=== PATIENT | male | born 1990 | race Caucasian/White ===

== ENCOUNTER 2019-06-02 18:46 | Emergency (ER) | payer OTHER ==
--- NOTE | 2019-06-02 21:24 | XR ---
EXAMINATION TYPE: XR chest 2V DATE OF EXAM: 06/02/2019 COMPARISON: NONE HISTORY: Cough and congestion TECHNIQUE: 2 views FINDINGS: Heart is normal. Lungs are clear. Diaphragm is normal. Bony thorax is intact. IMPRESSION: Normal chest. Normal heart.
[2019-06-02 21:40] LABS: Basophils # (A) 0.2 k/uL (0-0.2); Basophils % (A) 2 %; Eosinophils # (A) 0.4 k/uL (0-0.7); Eosinophils % (A) 3 %; HCT 45.7 % (39.0-53.0); HGB 15.2 gm/dL (13.0-17.5); Lymphocytes # (A) 4.4 k/uL (1.0-4.8); Lymphocytes % (A) 31 %; MCH 30.7 pg (25.0-35.0); MCHC 33.3 g/dL (31.0-37.0); MCV 92.1 fL (80.0-100.0); Mean Platelet Volume 7.9; Monocytes # (A) 0.9 k/uL (0-1.0); Monocytes % (A) 6 %; Neutrophils # (A) 8.2 k/uL (1.3-7.7); Neutrophils % (A) 57 %; Platelet Count 259 k/uL (150-450); RBC 4.96 m/uL (4.30-5.90); RDW 12.5 % (11.5-15.5); WBC 14.2 k/uL (3.8-10.6)
[2019-06-02 21:57] LABS: ALT 17 U/L (4-49); AST 30 U/L (17-59); African American GFR (CKD) >90 (>60 ml/min/1.73 sqM); Albumin 4.1 g/dL (3.5-5.0); Alkaline Phosphatase 72 U/L (38-126); Anion Gap 8 mmol/L; Blood Urea Nitrogen 20 mg/dL (9-20); Calcium 8.9 mg/dL (8.4-10.2); Carbon Dioxide 23 mmol/L (22-30); Chloride 107 mmol/L (98-107); Glucose 99 mg/dL (74-99); Magnesium 1.8 mg/dL (1.6-2.3); Non-African American GFR(CKD) 89 (>60 ml/min/1.73 sqM); Potassium 4.4 mmol/L (3.5-5.1); Sodium 138 mmol/L (137-145); Total Bilirubin 0.4 mg/dL (0.2-1.3); Total Protein 6.8 g/dL (6.3-8.2)
--- NOTE | 2019-06-02 22:56 | ED ---
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 He states that the pain has been present for approximately one month. He describes it as a pleuritic pain. Denies pain with palpitation of the area he has not attempted to take any medications at home for her symptoms. Does admit to making him feel mildly short of breath. No associated nausea or vomiting. Denies a history of DVT or PE. States that he had an EF of 20% 4 years ago and never followed up. He currently does not take any medications. He denies any tearing or chest pain. No fevers or chills. Currently does not use any IV drugs. No recent sick contacts. No travel. Denies any fevers or chills. No history of endocarditis. No nausea or vomiting. There are no alleviating, precipitating or modifying factors - Related Data Allergies Allergy/AdvReac Type Severity Reaction Status Date / Time No Known Allergies Allergy Verified 06/02/19 19:45 Review of Systems ROS Statement: Those systems with pertinent positive or pertinent negative responses have been documented in the HPI. ROS Other: All systems not noted in ROS Statement are negative. Past Medical History Past Medical History: No Reported History History of Any Multi-Drug Resistant Organisms: None Reported Past Surgical History: No Surgical Hx Reported Past Psychological History: No Psychological Hx Reported Smoking Status: Current every day smoker Past Alcohol Use History: Occasional Past Drug Use History: Marijuana General Exam Limitations: no limitations General appearance: alert, in no apparent distress Head exam: Present: atraumatic, normocephalic, normal inspection Eye exam: Present: normal appearance, PERRL, EOMI. Absent: scleral icterus, conjunctival injection, periorbital swelling ENT exam: Present: normal exam, mucous membranes moist Neck exam: Present: normal inspection. Absent: tenderness, meningismus, lympha denopathy Respiratory exam: Present: normal lung sounds bilaterally, chest wall tenderness (on the right. no palpable deformity). Absent: respiratory distress, wheezes, rales, rhonchi, stridor Cardiovascular Exam: Present: regular rate, normal rhythm, normal heart sounds. Absent: systolic murmur, diastolic murmur, rubs, gallop, clicks GI/Abdominal exam: Present: soft, normal bowel sounds. Absent: distended, tenderness, guarding, rebound, rigid Extremities exam: Present: normal inspection, full ROM, normal capillary refill. Absent: tenderness, pedal edema, joint swelling, calf tenderness Back exam: Present: normal inspection Neurological exam: Present: alert, oriented X3, CN II-XII intact Psychiatric exam: Present: normal affect, normal mood Skin exam: Present: warm, dry, intact, normal color. Absent: rash Course Vital Signs 06/02/19 06/02/19 19:42 23:16 Temperature 97.9 F 98 F Pulse Rate 57 L 69 Respiratory 20 18 Rate Blood Pressure 118/65 123/85 O2 Sat by Pulse 98 98 Oximetry EKG Findings - EKG Comments: EKG Findings:: EKG demonstrates normal sinus rhythm with a ventricular rate of 60. ME interval 168. QRS 94. QTC of 408. There is a Q wave within inverted T-wave in lead 3. J-point elevation in V2 through V6. No acute ST segment elevations Medical Decision Making - Medical Decision Making Upon arrival the patient was placed into room 23. Because of his complaint I did place the patient in room 7. He is up to continuous pulse ox and cardiac monitoring. 12-lead EKG was performed which demonstrates no acute findings. I did recommend laboratory studies which was started with blood cell count 14.2. D-dimer is negative. CMP is unremarkable. Patient has normal kidney function at this time. Troponin is less than 0.012. BNP is 48. The patient was sent for a chest x-ray which demonstrates no acute findings. I discussed results with the patient. He is satisfied with the workup. He states that he had the pain for approximately one month and was persuaded to come into the emergency room by his for evaluation. I did recommend that the patient follow up with [facility] in order to have a repeat echo to ensure his EF has improved. I instructed him that he should take Naprosyn twice daily for his discomfort. Return to the emergency room for any new or worsening symptoms. Follow up with his primary care doctor in 2-4 days. The patient understood this he was discharged home in stable condition - Lab Data Result diagrams: 06/02/19 21:21 06/02/19 21:21 Lab Results 06/02/19 06/02/19 06/02/19 Range/Units 21:21 21:21 21:21 WBC 14.2 H (3.8-10.6) k/uL RBC 4.96 (4.30-5.90) m/uL Hgb 15.2 (13.0-17.5) gm/dL Hct 45.7 (39.0-53.0) % MCV 92.1 (80.0-100.0) fL MCH 30.7 (25.0-35.0) pg MCHC 33.3 (31.0-37.0) g/dL RDW 12.5 (11.5-15.5) % Plt Count 259 (150-450) k/uL Neutrophils % 57 % Lymphocytes % 31 % Monocytes % 6 % Eosinophils % 3 % Basophils % 2 % Neutrophils # 8.2 H (1.3-7.7) k/uL Lymphocytes # 4.4 (1.0-4.8) k/uL Monocytes # 0.9 (0-1.0) k/uL Eosinophils # 0.4 (0-0.7) k/uL Basophils # 0.2 (0-0.2) k/uL D-Dimer 0.18 (<0.60) mg/L FEU Sodium 138 (137-145) mmol/L Potassium 4.4 (3.5-5.1) mmol/L Chloride 107 (98-107) mmol/L Carbon Dioxide 23 (22-30) mmol/L Anion Gap 8 mmol/L BUN 20 (9-20) mg/dL Creatinine 1.12 (0.66-1.25) mg/dL Est GFR (CKD-EPI)AfAm >90 (>60 ml/min/1.73 sqM) Est GFR (CKD-EPI)NonAf 89 (>60 ml/min/1.73 sqM) Glucose 99 (74-99) mg/dL Calcium 8.9 (8.4-10.2) mg/dL Magnesium 1.8 (1.6-2.3) mg/dL Total Bilirubin 0.4 (0.2-1.3) mg/dL AST 30 (17-59) U/L ALT 17 (4-49) U/L Alkaline Phosphatase 72 (38-126) U/L Troponin I (0.000-0.034) ng/mL NT-Pro-B Natriuret Pep pg/mL Total Protein 6.8 (6.3-8.2) g/dL Albumin 4.1 (3.5-5.0) g/dL Lipase 98 (23-300) U/L 06/02/19 06/02/19 Range/Units 21:21 21:21 WBC (3.8-10.6) k/uL RBC (4.30-5.90) m/uL Hgb (13.0-17.5) gm/dL Hct (39.0-53.0) % MCV (80.0-100.0) fL MCH (25.0-35.0) pg MCHC (31.0-37.0) g/dL RDW (11.5-15.5) % Plt Count (150-450) k/uL Neutrophils % % Lymphocytes % % Monocytes % % Eosinophils % % Basophils % % Neutrophils # (1.3-7.7) k/uL Lymphocytes # (1.0-4.8) k/uL Monocytes # (0-1.0) k/uL Eosinophils # (0-0.7) k/uL Basophils # (0-0.2) k/uL D-Dimer (<0.60) mg/L FEU Sodium (137-145) mmol/L Potassium (3.5-5.1) mmol/L Chloride (98-107) mmol/L Carbon Dioxide (22-30) mmol/L Anion Gap mmol/L BUN (9-20) mg/dL Creatinine (0.66-1.25) mg/dL Est GFR (CKD-EPI)AfAm (>60 ml/min/1.73 sqM) Est GFR (CKD-EPI)NonAf (>60 ml/min/1.73 sqM) Glucose (74-99) mg/dL Calcium (8.4-10.2) mg/dL Magnesium (1.6-2.3) mg/dL Total Bilirubin (0.2-1.3) mg/dL AST (17-59) U/L ALT (4-49) U/L Alkaline Phosphatase (38-126) U/L Troponin I <0.012 (0.000-0.034) ng/mL NT-Pro-B Natriuret Pep 48 pg/mL Total Protein (6.3-8.2) g/dL Albumin (3.5-5.0) g/dL Lipase (23-300) U/L Disposition Clinical Impression: Chest wall pain Disposition: HOME SELF-CARE Condition: Stable Instructions (If sedation given, give patient instructions): Chest Wall Pain (ED) Additional Instructions: Please follow-up with your primary care doctor in 2-4 days. I also recommended you see the [facility] for reevaluation of your heart function. Return to the emergency room for any new worsening symptoms Is patient prescribed a controlled substance at d/c from ED?: No Referrals: None,Stated [Primary Care Provider] - 1-2 days [facility] [Provider Group] - 1-2 days Time of Disposition: 23:08
[2019-06-02 23:16] VITALS: BP 123/85; PULSE 69; RESP 18; TEMP 98
== END 2019-06-02 23:21 | disposition home or self-care (01) ==
LOC: EC 18:46
DX: R07.89 Other chest pain (principal); I50.9 Heart failure, unspecified; N19 Unspecified kidney failure; T40.1X1A Poisoning by heroin, accidental (unintentional), initial encounter; F17.200 Nicotine dependence, unspecified, uncomplicated
CPT/HCPCS: 36415; 71046; 80053; 83690; 83735; 83880; 84484; 85025; 85379; 93005; 99284

== ENCOUNTER 2021-06-11 14:00 | Emergency (ER) | payer OTHER ==
[2021-06-11 14:14] VITALS: RESP 18; TEMP 98.2
[2021-06-11] MEDS ORDERED: HYDROmorphone 1 MG/ML 1 ML SYRINGE IM STA (15:02)
[2021-06-11] MEDS ORDERED: TRANEXAMIC ACID 1,000 MG/10 ML VIAL IRRIGATION STA (15:28)
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
[2021-06-11 17:20] VITALS: BP 133/64; PULSE 68
== END 2021-06-11 17:20 | disposition home or self-care (01) ==
LOC: EC 14:00
DX: L76.01 Intraoperative hemorrhage and hematoma of skin and subcutaneous tissue complicating a dermatologic procedure (principal); F17.200 Nicotine dependence, unspecified, uncomplicated; W19.XXXA Unspecified fall, initial encounter
CPT/HCPCS: 99283; 96372; J1170

== ENCOUNTER 2021-10-13 13:15 | Emergency (ER) | payer OTHER ==
[2021-10-13] MEDS ORDERED: DIPH,PERTUS(ACELL)TETVAC-LF 0.5 ML VIAL IM ONE (13:22)
[2021-10-13] MEDS ORDERED: SODIUM CHLORIDE 0.9% 1,000 ML IV STA (13:22)
[2021-10-13 13:23] VITALS: PULSE 80; RESP 16
[2021-10-13] MEDS ORDERED: MORPHINE SULFATE 4 MG/ML SYRINGE IVP STA ×3 (13:23→16:09)
[2021-10-13 13:26] LABS: Glucose,Whole Blood 113 mg/dL (75-99)
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
--- NOTE | 2021-10-13 13:47 | XR ---
EXAMINATION TYPE: XR chest 1V portable DATE OF EXAM: 10/13/2021 COMPARISON: 06/02/2019 HISTORY: Trauma TECHNIQUE: Single frontal view of the chest is obtained. FINDINGS: There is a small focal infiltrate in the left upper lobe which was seen previously but is slightly more prominent. The heart size normal vasculature is not congested. There is no pleural effusion thorax. The osseous structures are intact IMPRESSION: 1. No evidence of trauma 2. Small left upper lobe infiltrate which has increased in the interval since the prior study.
[2021-10-13 13:48] LABS: ALT 47 U/L (4-49); AST 50 U/L (17-59); African American GFR (CKD) >90 (>60 ml/min/1.73 sqM); Albumin 4.7 g/dL (3.5-5.0); Alcohol <10 mg/dL; Alkaline Phosphatase 126 U/L (38-126); Anion Gap 11 mmol/L; Blood Urea Nitrogen 16 mg/dL (9-20); Calcium 9.5 mg/dL (8.4-10.2); Carbon Dioxide 22 mmol/L (22-30); Chloride 109 mmol/L (98-107); Glucose 115 mg/dL (74-99); Non-African American GFR(CKD) >90 (>60 ml/min/1.73 sqM); Potassium 3.9 mmol/L (3.5-5.1); Sodium 142 mmol/L (137-145); Total Bilirubin 0.8 mg/dL (0.2-1.3); Total Protein 7.7 g/dL (6.3-8.2)
--- NOTE | 2021-10-13 13:49 | XR ---
Pelvis. HISTORY: Pain findings trauma COMPARISON: None. TECHNIQUE: Single AP view the pelvis is obtained. FINDINGS: There has been open reduction internal fixation of multiple pelvic fractures and fracture of the prox imal right femur. There is no evidence of acute trauma. IMPRESSION: Marked open reduction internal fixation of multiple pelvic fractures and right hip fracture. There is no evidence of acute trauma.
[2021-10-13 13:52] LABS: Basophils # (A) 0.1 k/uL (0-0.2); Basophils % (A) 0 %; Eosinophils # (A) 0.1 k/uL (0-0.7); Eosinophils % (A) 1 %; HCT 47.6 % (39.0-53.0); HGB 16.3 gm/dL (13.0-17.5); Lymphocytes # (A) 2.4 k/uL (1.0-4.8); Lymphocytes % (A) 16 %; MCH 30.2 pg (25.0-35.0); MCHC 34.2 g/dL (31.0-37.0); MCV 88.3 fL (80.0-100.0); Mean Platelet Volume 7.8; Monocytes # (A) 0.9 k/uL (0-1.0); Monocytes % (A) 6 %; Neutrophils % (A) 75 %; Platelet Count 332 k/uL (150-450); RDW 13.9 % (11.5-15.5); WBC 14.8 k/uL (3.8-10.6)
[2021-10-13 13:58] LABS: Prothrombin Time 11.1 sec (9.0-12.0)
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
[2021-10-13 17:02] VITALS: BP 136/95; TEMP 98.5
== END 2021-10-13 17:02 | disposition home or self-care (01) ==
LOC: EC 13:15
DX: S62.390A Other fracture of second metacarpal bone, right hand, initial encounter for closed fracture (principal); S00.03XA Contusion of scalp, initial encounter; S00.81XA Abrasion of other part of head, initial encounter; S50.312A Abrasion of left elbow, initial encounter; S50.311A Abrasion of right elbow, initial encounter; F17.200 Nicotine dependence, unspecified, uncomplicated; D72.829 Elevated white blood cell count, unspecified; Z89.511 Acquired absence of right leg below knee; Z23 Encounter for immunization; V29.9XXA Motorcycle rider (driver) (passenger) injured in unspecified traffic accident, initial encounter
CPT/HCPCS: 36415; 86900; 86901; 80053; 85025; 85610; 85730; 86850; 73130; 73090; 73080; 72170; 73030; 73110; 71045; 72129; 72125; 72132; 70486; 70450; 71260; 74177; 90715; 29125; 99285; 96374; 96376; 90471; G0480; J2270; Q9967; 80320

== ENCOUNTER 2022-09-26 13:56 | Inpatient (IN) | payer MEDICAID, OTHER ==
[2022-09-26 14:22] VITALS: RESP 18
[2022-09-26] MEDS ORDERED: LIDOCAINE 5% PATCH TOPICAL STA (14:33)
[2022-09-26] MEDS ORDERED: KETOROLAC 15 MG/ML 1 ML VIAL IM STA (14:33)
[2022-09-26] MEDS ORDERED: LORazepam 1 MG TAB PO STA (14:33)
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
[2022-09-26] MEDS ORDERED: CYCLOBENZAPRINE 5 MG TAB PO STA (16:00)
[2022-09-26 16:10] LABS: Amphetamine Screen,Urine Not Detected (NotDetected); Barbiturate Screen,Urine Not Detected (NotDetected); Benzodiazepines Screen,Urine Detected (NotDetected); Cocaine Screen,Urine Not Detected (NotDetected); Methadone Screen, Urine Not Detected (NotDetected); Opiate Screen,Urine Not Detected (NotDetected); Oxycodone Screen, Urine Not Detected (NotDetected); Phencyclidine Screen,Urine Not Detected (NotDetected); Tricyclic Antidepressant,Urine Not Detected (NotDetected); Urn Cannabinoid Scrn Detected (NotDetected)
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
[2022-09-26] MEDS ORDERED: MAG HYDROX/AL HYDROX/SIMETH 30 ML CUP PO PRN (21:18)
[2022-09-26] MEDS ORDERED: MAGNESIUM HYDROXIDE 2,400 MG/10 ML CUP PO PRN (21:18)
[2022-09-26] MEDS ORDERED: LORazepam 2 MG/ML INJ IM PRN (21:22)
[2022-09-26] MEDS ORDERED: HALOPERIDOL LACTATE 5 MG/ML 1 ML VIAL IM PRN (21:22)
[2022-09-26] MEDS ORDERED: haloperidoL 5 MG TAB PO PRN (21:22)
[2022-09-26] MEDS ORDERED: GABAPENTIN 300 MG CAP PO SCH (21:30)
[2022-09-26] MEDS: ACETAMINOPHEN TAB 325 MG TAB PO PRN (22:30)
[2022-09-26] MEDS: LORazepam 1 MG TAB PO PRN (22:30)
[2022-09-26 23:16] VITALS: TEMP 97.8
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
[2022-09-27] MEDS ORDERED: GABAPENTIN 300 MG CAP PO SCH (07:30)
[2022-09-27] MEDS ORDERED: NICOTINE 14MG/24HR PATCH TRANSDERM SCH (09:00)
[2022-09-27] MEDS ORDERED: SERTRALINE 50 MG TAB PO SCH (09:00)
[2022-09-27] MEDS ORDERED: busPIRone HCl 5 MG TAB PO SCH (09:00)
[2022-09-27] MEDS: MULTIVITAMINS, THERA 1 EACH TAB PO SCH (09:15)
[2022-09-27 09:41] LABS: Basophils # (A) 0.1 k/uL (0-0.2); Basophils % (A) 1 %; Eosinophils # (A) 0.3 k/uL (0-0.7); Eosinophils % (A) 3 %; HCT 45.3 % (39.0-53.0); HGB 15.1 gm/dL (13.0-17.5); Lymphocytes % (A) 21 %; MCH 30.2 pg (25.0-35.0); MCHC 33.3 g/dL (31.0-37.0); MCV 90.5 fL (80.0-100.0); Monocytes # (A) 0.7 k/uL (0-1.0); Monocytes % (A) 8 %; Neutrophils # (A) 6.2 k/uL (1.3-7.7); Neutrophils % (A) 65 %; Platelet Count 271 k/uL (150-450); RBC 5.01 m/uL (4.30-5.90); RDW 12.6 % (11.5-15.5); WBC 9.5 k/uL (3.8-10.6)
[2022-09-27 09:49] LABS: ALT 34 U/L (4-49); AST 34 U/L (17-59); African American GFR (CKD) >90 (>60 ml/min/1.73 sqM); Albumin 4.1 g/dL (3.5-5.0); Alkaline Phosphatase 116 U/L (38-126); Anion Gap 9 mmol/L; Blood Urea Nitrogen 13 mg/dL (9-20); Carbon Dioxide 27 mmol/L (22-30); Chloride 105 mmol/L (98-107); Glucose 112 mg/dL (74-99); Non-African American GFR(CKD) >90 (>60 ml/min/1.73 sqM); Sodium 141 mmol/L (137-145); Total Bilirubin 0.4 mg/dL (0.2-1.3)
[2022-09-27] MEDS ORDERED: TOPIRAMATE 25 MG TAB PO STA (12:07)
[2022-09-27] MEDS: LORazepam 1 MG TAB PO PRN ×2 (12:08→18:24)
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
[2022-09-27] MEDS: ACETAMINOPHEN TAB 325 MG TAB PO PRN ×2 (15:20→20:10)
[2022-09-27] MEDS: GABAPENTIN 300 MG CAP PO SCH ×2 (15:20→20:10)
[2022-09-27] MEDS: LIDOCAINE 5% PATCH TOPICAL SCH (16:51)
[2022-09-27] MEDS: NICOTINE GUM (POLACRILEX) 2 MG GUM BUCCAL PRN ×2 (16:51→20:11)
[2022-09-27] MEDS: TOPIRAMATE 25 MG TAB PO SCH (20:10)
[2022-09-28] MEDS: ESCITALOPRAM 10 MG TAB PO SCH (07:51)
[2022-09-28] MEDS: MULTIVITAMINS, THERA 1 EACH TAB PO SCH (07:51)
[2022-09-28] MEDS: TOPIRAMATE 25 MG TAB PO SCH ×2 (07:51→20:31)
[2022-09-28] MEDS: GABAPENTIN 300 MG CAP PO SCH ×3 (07:52→20:31)
[2022-09-28] MEDS: LIDOCAINE 5% PATCH TOPICAL SCH (08:27)
[2022-09-28] MEDS: LORazepam 1 MG TAB PO PRN ×3 (08:29→20:31)
[2022-09-28] MEDS: NICOTINE GUM (POLACRILEX) 2 MG GUM BUCCAL PRN ×3 (13:00→22:25)
[2022-09-28 14:06] LABS: Appearance,Urine Clear (Clear); Bilirubin,Urine Negative (Negative); Blood,Urine Negative (Negative); Color,Urine Yellow; Glucose,Urine (UA) Negative (Negative); Ketones,Urine Negative (Negative); Leukocyte Esterase,Urine Negative (Negative); Nitrite,Urine Negative (Negative); Protein,Urine Negative (Negative); Specific Gravity,Urine 1.017 (1.001-1.035); Urobilinogen,Urine <2.0 mg/dL (<2.0)
[2022-09-28] MEDS ORDERED: KETOROLAC 15 MG/ML 1 ML VIAL IM STA (18:48)
[2022-09-29 08:03] VITALS: BP 141/90; PULSE 88
[2022-09-29] MEDS: TOPIRAMATE 25 MG TAB PO SCH ×2 (08:03→20:58)
[2022-09-29] MEDS: GABAPENTIN 300 MG CAP PO SCH ×3 (08:03→20:58)
[2022-09-29] MEDS: LIDOCAINE 5% PATCH TOPICAL SCH (08:03)
[2022-09-29] MEDS: ESCITALOPRAM 10 MG TAB PO SCH (08:03)
[2022-09-29] MEDS: MULTIVITAMINS, THERA 1 EACH TAB PO SCH (08:03)
[2022-09-29] MEDS: LORazepam 1 MG TAB PO PRN ×2 (08:05→17:54)
[2022-09-29] MEDS: NICOTINE GUM (POLACRILEX) 2 MG GUM BUCCAL PRN ×3 (09:43→21:45)
[2022-09-29] MEDS ORDERED: KETOROLAC 15 MG/ML 1 ML VIAL IM STA (09:53)
[2022-09-29] MEDS ORDERED: IBUPROFEN 600 MG TAB PO PRN (09:53)
--- NOTE | 2022-09-29 20:36 | P.PN ---
Progress Note - Text Progress Note Date: 09/28/22 Interval history: Patient was seen isolating to his room in bed. His walker is at bedside. He appears superficially cooperative, and irritable. He claims good sleep and appetite. At this time patient denies any suicidal or homicidal ideation, intent or plan. Denies any auditory or visual hallucinations. Patient denies any side effects from the medications and has been compliant with meds. Mental status exam: General Appearance: Patient appears to be stated age, tattoos. Behavior: No agitated behavior. Needs walker to ambulate. Speech: Patient's speech is fluent and non-pressured. Mood/Affect: Mood is improving mildly, affect is congruent and constricted. Suicidality/Homicidality: Patient denies having any suicidal or homicidal ideation intent or plan. Perceptions: Patient denies any auditory or visual hallucinations. Though content/process: There is no evidence of any delusional thought content and thought process is linear and goal-directed. Memory and concentration: AOX3, grossly intact for the purposes of this session Judgment and insight: improving mildly Assessment/Plan: Continue with current diagnosis. Patient continues to meet criteria for inpatient psychiatric admission for symptom stabilization and safety. Patient will be maintained on current psychotropic medication regimen. Monitor for medication compliance and for any psychotropic medication side effects. Will continue to monitor ongoing response to treatment. Encouraged participation in milieu.
--- NOTE | 2022-09-29 20:39 | P.PN ---
Progress Note - Text Progress Note Date: 09/29/22 Interval history: Patient was seen isolating to his room again today. His walker is at bedside. He appears superficially cooperative but in better mood today likely because he received PRN Haldol 5 mg po x 1 earlier this morning. He has been vaping on the unit and staff took his vape from him due to policy. He claims good sleep and appetite. At this time patient denies any suicidal or homicidal ideation, intent or plan. Denies any auditory or visual hallucinations. Patient denies any side effects from the medications and has been compliant with meds. Mental status exam: General Appearance: Patient appears to be stated age, tattoos. Behavior: No agitated behavior. Needs walker to ambulate. Speech: Patient's speech is fluent and non-pressured. Mood/Affect: Mood is improving mildly, affect is congruent and constricted. Suicidality/Homicidality: Patient denies having any suicidal or homicidal ideation intent or plan. Perceptions: Patient denies any auditory or visual hallucinations. Though content/process: There is no evidence of any delusional thought content and thought process is linear and goal-directed. Memory and concentration: AOX3, grossly intact for the purposes of this session Judgment and insight: Improving mildly Assessment/Plan: Continue with current diagnosis. Patient continues to meet criteria for inpatient psychiatric admission for symptom stabilization and safety. Patient will be maintained on current psychotropic medication regimen. Monitor for medication compliance and for any psychotropic medication side effects. Will continue to monitor ongoing response to treatment. Encouraged participation in milieu.
[2022-09-30] MEDS ORDERED: PANTOPRAZOLE 40 MG TABLET PO SCH (07:30)
[2022-09-30] MEDS: TOPIRAMATE 25 MG TAB PO SCH (08:00)
[2022-09-30] MEDS: ESCITALOPRAM 10 MG TAB PO SCH (08:00)
[2022-09-30] MEDS: GABAPENTIN 300 MG CAP PO SCH (08:00)
[2022-09-30] MEDS: MULTIVITAMINS, THERA 1 EACH TAB PO SCH (08:00)
[2022-09-30] MEDS: LORazepam 1 MG TAB PO PRN (08:01)
[2022-09-30] MEDS: NICOTINE GUM (POLACRILEX) 2 MG GUM BUCCAL PRN ×2 (08:16→11:54)
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
== END 2022-09-30 12:11 | disposition home or self-care (01) | DRG 751 ==
LOC: EC 13:56 → 3MHU 21:13
PROVIDERS: ADMIT Psychiatry & Neurology Psychiatry; ATTEND Psychiatry & Neurology Psychiatry
DX: F33.2 Major depressive disorder, recurrent severe without psychotic features (principal); R45.851 Suicidal ideations; Z20.822 Contact with and (suspected) exposure to COVID-19; F11.11 Opioid abuse, in remission; F43.10 Post-traumatic stress disorder, unspecified; G43.909 Migraine, unspecified, not intractable, without status migrainosus; G62.9 Polyneuropathy, unspecified; F17.290 Nicotine dependence, other tobacco product, uncomplicated; Z71.51 Drug abuse counseling and surveillance of drug abuser; Z71.6 Tobacco abuse counseling; V29.99XA Rider (driver) (passenger) of other motorcycle injured in unspecified traffic accident, initial encounter; Z63.5 Disruption of family by separation and divorce; Z79.899 Other long term (current) drug therapy; Z91.51 Personal history of suicidal behavior; Z89.611 Acquired absence of right leg above knee; Z87.828 Personal history of other (healed) physical injury and trauma
CPT/HCPCS: 71046; 80053; 80306; 81003; 82075; 83036; 84443; 85025; 87635